=== PATIENT | female | born 1945 | race Caucasian/White ===

== ENCOUNTER → 2017-03-17 | Outpatient (CLI) | payer BC, MEDICARE ==
--- NOTE | 2017-03-17 15:45 | XR ---
EXAMINATION TYPE: XR abdomen 2V DATE OF EXAM: 03/17/2017 CLINICAL HISTORY: Left flank pain since yesterday. TECHNIQUE: Supine and upright views of the abdomen are obtained. COMPARISON: None. FINDINGS: Scattered gas is seen in non-distended stomach and small bowel loops. Gas and fecal mater ial is seen in non-distended colon. There is some prominence of fecal material in low-lying cecum. T here is no pneumoperitoneum appreciated. Lung bases are clear. Some vascular calcification left upper quadrant is present. There is 1 cm round rim calcification could reflect left basilar granuloma, sma ll splenic artery aneurysm it is in the differential. Surgical clips right groin region are seen. IMPRESSION: Overall nonobstructive bowel gas pattern is felt present.
== END ==
LOC: RADXRYALE 15:17
PROVIDERS: ATTEND Physician Assistant Medical
DX: R10.84 Generalized abdominal pain (principal); M54.5 Low back pain
CPT/HCPCS: 74020

== ENCOUNTER → 2018-03-15 | Outpatient (CLI) | payer MEDICARE ==
--- NOTE | 2018-03-15 11:47 | XR ---
Fourth digit left hand HISTORY: Trauma and pain 2 views of the fourth digit of the left hand There is a dorsal fracture at the proximal aspect of the distal phalanx of the fourth digit of the le ft hand which is intra-articular and is displaced dorsally. No evident dislocation. IMPRESSION: Intra-articular fourth digit fracture as described
== END | disposition home or self-care (01) ==
LOC: RADXRYALE 10:02
PROVIDERS: ATTEND Physician Assistant Medical
DX: S62.635A Displaced fracture of distal phalanx of left ring finger, initial encounter for closed fracture (principal)

== ENCOUNTER → 2022-12-15 | Outpatient (CLI) | payer MEDICARE ==
--- NOTE | 2022-12-15 16:53 | CA ---
Transthoracic Echo Report Name: Asia Bhatti Age: 77 Gender: F : 1945 Exam Date: 12/15/2022 11:32 Exam Location: [facility] Ht (in): 59 Wt (lb): 150 Ordering Physician: Dennys Peraza DO Attending/Referring Phys: Melody Mccormick PAC Project Intern Galina Galdamez RDCS Procedure CPT: Indications: R53.83 I10 Cardiac Hx: Technical Quality: Fair Contrast 1: Total Dose (mL): Contrast 2: Total Dose (mL): MEASUREMENTS (Male / Female) Normal Values 2D ECHO LV Diastolic Diameter PLAX 3.8 cm 4.2 - 5.9 / 3.9 - 5.3 cm LV Systolic Diameter PLAX 2.4 cm IVS Diastolic Thickness 1.1 cm 0.6 - 1.0 / 0.6 - 0.9 cm LVPW Diastolic Thickness 1.2 cm 0.6 - 1.0 / 0.6 - 0.9 cm LV Relative Wall Thickness 0.6 LA Volume 29.2 cm??? 18 - 58 / 22 - 52 cm??? M-MODE Aortic Root Diameter MM 3.0 cm LA Systolic Diameter MM 2.5 cm LA Ao Ratio MM 0.8 AV Cusp Separation MM 1.8 cm DOPPLER AV Peak Velocity 94.7 cm/s AV Peak Gradient 3.6 mmHg AV Mean Velocity 73.5 cm/s AV Mean Gradient 2.3 mmHg AV Velocity Time Integral 24.3 cm AI Peak Velocity 486.1 cm/s AI Peak Gradient 94.5 mmHg AI Pressure Half Time 267.1 ms LVOT Peak Velocity 83.1 cm/s LVOT Peak Gradient 2.8 mmHg LVOT Velocity Time Integral 21.5 cm MV Area PHT 6.9 cm??? Mitral E Point Velocity 105.9 cm/s Mitral A Point Velocity 121.5 cm/s Mitral E to A Ratio 0.9 MV Deceleration Time 110.6 ms MV E' Velocity 4.3 cm/s Mitral E to MV E' Ratio 24.6 TR Peak Velocity 272.8 cm/s TR Peak Gradient 29.8 mmHg Right Ventricular Systolic Press 34.8 mmHg FINDINGS Left Ventricle Mildly increased left ventricular wall thickness. Left ventricular cavity size normal. Normal left ventricular systolic function with no obvious regional wall motion abnormalities. Left ventricular ejection fraction is estimated at 55-60 %. Right Ventricle Normal right ventricular size and function. Mild pulmonary hypertension. Right Atrium Normal right atrial size. Left Atrium Normal left atrial size. Mitral Valve Structurally normal mitral valve. Mitral valve thickened. Mild mitral annular calcification. [id number] mitral regurgitation. Aortic Valve Trileaflet aortic valve. Mild aortic regurgitation. Aortic valve sclerosis. Tricuspid Valve Structurally normal tricuspid valve. Mild tricuspid regurgitation. Pulmonic Valve Trace pulmonic regurgitation. Pericardium No pericardial effusion. Aorta Normal size aortic root and proximal ascending aorta. CONCLUSIONS Normal LV systolic function Mild to moderate mitral and mild aortic and mild tricuspid regurgitation Previewed by: Dr. Sanford Saleem MD (Electronically Signed) Final Date: 15 December 2022 16:53
== END | disposition home or self-care (01) ==
LOC: RADECHMAIN 11:26
PROVIDERS: ATTEND Family Medicine
DX: I08.3 Combined rheumatic disorders of mitral, aortic and tricuspid valves (principal); R53.83 Other fatigue; I10 Essential (primary) hypertension
CPT/HCPCS: 93306

== ENCOUNTER → 2023-06-26 | Outpatient (CLI) | payer MEDICARE ==
--- NOTE | 2023-06-27 18:47 | XR ---
EXAMINATION TYPE: XR thoracic spine 3 views complete, XR lumbosacral spine 5 views DATE OF EXAM: 06/26/2023 Comparison: None Clinical History: 77-year-old female [id number] LBP,THOR PAIN Findings: Thoracic spine: 12 rib-bearing thoracic vertebral bodies. All pedicles are visualized. Vertebral body heights are pre served and alignment is maintained. Lumbar spine: Slight levoconvex curvature of the lumbar spine. 5 lumbar type vertebral bodies. Moderate degenerativ e disc disease throughout with narrowed and desiccated disc. Hypertrophic facet arthropathy especiall y mid to lower lumbar spine. Degenerative grade 1 anterolisthesis L4-L5. Remaining alignment is maint ained. Abdomen scattered calcifications throughout the visualized aorta. Impression: 1. Thoracic spine: No vertebral compression collapse or malalignment. 2. Lumbar spine: Moderate multilevel degenerative disc disease. Hypertrophic facet arthropathy especi ally mid to lower lumbar spine with degenerative grade 1 anterolisthesis L4-L5. No vertebral compress ion collapse.
== END | disposition home or self-care (01) ==
LOC: RADXRYALE 15:05
PROVIDERS: ATTEND Physician Assistant Medical
DX: M51.36 Other intervertebral disc degeneration, lumbar region (principal); M47.816 Spondylosis without myelopathy or radiculopathy, lumbar region; M43.16 Spondylolisthesis, lumbar region
CPT/HCPCS: 72072; 72110